=== PATIENT | female | born 1935 | race Caucasian/White ===

== ENCOUNTER 2023-05-13 10:45 | Inpatient (IN) | payer MEDICARE, BC ==
[2023-05-13] VITALS (478 sets, daily range): BP systolic 147–168; BP diastolic 69–72; PULSE 82–98; TEMP 98.2–98.6; O2SAT 78–100
[~2023-05-13] VITALS: Wt 71.2 kg
--- NOTE | 2023-05-13 11:42 | NUR ---
REPORT RECEIVED FROM [facility] AT 1050. PT ARRIVED TO ICU VIA EMS [facility] AT 1142 AND WHEELED TO ROOM 7 ON A CART. SHE WAS TRANSFERRED TO BED BY STAFF X3. VS WNL AND PATIENT DENIES PAIN. SHE IS A&O X 3 AND REPORTS HER DAUGHTER CAME TO [facility] WITH HER. ASSESSMENT COMPLETED WITH NO ISSUES. DAUGHTER BROUGHT TO ROOM, BED IN LOW POSITION, CALL LIGHT WITHIN REACH, AND NO ADDITIONAL NEEDS ANTICIPATED AT THIS TIME.
[2023-05-13 13:39] LABS: PARTIAL THROMBOPLASTIN TIME 106.3 SECONDS (26.0-37.0)
[2023-05-13] MEDS ORDERED: EFFEXOR XR75 MG/CAP PO (14:40)
[2023-05-13] MEDS ORDERED: ASPIRIN 81M81 MG/TA2 PO (14:42)
[2023-05-13] MEDS ORDERED: PLAVIX 75MG TAB75 MG PO (14:43)
[2023-05-13] MEDS ORDERED: VASOTEC20 MG PO (14:44)
[2023-05-13] MEDS ORDERED: FERROUS SU325 MG/TAB PO (14:45)
[2023-05-13] MEDS ORDERED: OMEGA-31 SGL PO (14:46)
[2023-05-13] MEDS ORDERED: IMDUR 30MG30 MG/TAB PO (14:49)
[2023-05-13] MEDS ORDERED: LOPRESSOR100 MG PO (14:52)
[2023-05-13] MEDS ORDERED: CENTRUM SILVER1 CTB PO (14:53)
[2023-05-13] MEDS ORDERED: ZOCOR 40MG40 MG PO (14:54)
[2023-05-13] MEDS ORDERED: XANAX 0.5MG0.5 MG PO (14:55)
[2023-05-13] MEDS ORDERED: NITROSTAT0.4 MG/TAB SL (14:57)
[2023-05-13] MEDS ORDERED: ALDACTONE 25MG25 M1 PO (14:59)
[2023-05-13] MEDS ORDERED: GLUCOPHAGE500 MG/TAB PO (14:59)
[2023-05-13] MEDS ORDERED: PROTONIX 40MG T40 MG PO (15:00)
[2023-05-13] MEDS ORDERED: MASON NATURAL2000 IU PO (15:04)
[2023-05-13] MEDS ORDERED: NORVASC2.5 MG PO (15:05)
[2023-05-14] VITALS (93 sets, daily range): BP systolic 118–169; BP diastolic 58–96; PULSE 73–120; TEMP 97.3–98.2; O2SAT 84–99
[2023-05-14 04:58] LABS: ALBUMIN 3.5 gm/dL (3.4-4.8); CALCIUM 9.8 mg/dL (8.4-10.2); CHOLESTEROL RISK RATIO 2.5; CREATININE, serum 0.85 mg/dL (0.57-1.11); MAGNESIUM 1.7 mg/dL (1.6-2.6); PHOSPHOROUS 3.4 mg/dL (2.3-4.7); POTASSIUM 3.6 mmol/L (3.5-4.5)
[2023-05-14 05:10] LABS: TROPONIN-I 0.06 ng/mL (0.00-0.033)
[2023-05-14 05:11] LABS: HEMOGLOBIN 10.6 g/dl (12.5-16.0); MEAN CELL VOLUME 89 fl (80.0-100.0); MEAN CORPUSCULAR HEMOGLOBIN 30 pg (27-31); MEAN CORPUSCULAR HGB CONC 33 g/dl (33.0-37.0); MEAN PLATELET VOLUME 11.7 fl (7.4-10.4); PLATELET COUNT 259 K/mm3 (130-400); RED BLOOD COUNT 3.59 M/mm3 (4.10-5.30); REDCELL DISTRIBUTION WIDTH-CV 13.9 % (11.5-14.5)
[2023-05-14 05:15] LABS: HEMATOCRIT 31.8 % (37.0-47.0)
--- NOTE | 2023-05-14 06:06 | NUR ---
spoke to pt this am regarding the marty scan. pt refused and stated she wants to speak to the doctor again about the scan. nurse informed of pt decision.
[2023-05-14] MEDS ORDERED: IMDUR 60MG60 MG/TAB PO (08:34)
--- NOTE | 2023-05-14 09:35 | NUR ---
PATIENT HAVING [place] TODAY, HAD QUESTIONS/ ANSWERED, NITRO WAS STOPPED AT 0828. PATIENT LEFT FOR THIS SCAN AT 0910.
--- NOTE | 2023-05-14 12:47 | NUR ---
REGIONAL ENGINEER reviewed pt's clinical record and noted she was admitted yesterday for chest pain with possible NSTEMI. REGIONAL ENGINEER met with pt and her daughter, Sheron Will at the bedside this morning to complete an intake. Pt, who is [place], is and lives alone in her own home in [place]. She is independent and ambs without assistive devices. However, she reports she fell 3 months ago @ home, but did not sustain any injury. She states she lost her balance. Pt has two adult dts, Sheron is the HCPOA. She can be reached @ ph# [phone] ( document @ home, according to pt). Her other dtr, Leigh Schilling lives in , and she can be reached at ph# [phone]. Pt reports her primary care provider is Dr. Ivette Billingsley, ph# [phone] and she fills her prescriptions thru [facility] in [place]. Pt does not anticipate a need for outpt assistance at home when discharge. Pt's dtr, Sheron indicated she will transport pt home @ discharge. No other concerns noted.
--- NOTE | 2023-05-14 21:14 | NUR ---
TRANSFERRING TO VIA [facility]. [facility] ETA [phone]
--- NOTE | 2023-05-14 23:06 | NUR ---
2153: EMS HERE AND PT IS ON STRETCHER, VSS ( [id number]%-23 RESPIRATIONS AND B/P 120-130S /70S -80S. NTG AND HEPARIN INFUSING. NO CP, FAMILY WAS AT THE BEDSIDE AND INSTRUCTED THEM WHERE AND WHEN SHE WAS GOING. REPORT GIVEN TO RN RECIEVING PT IN [place], AND REPORT GIVEN TO EMS.
== END 2023-05-14 21:53 | disposition short-term general hospital (02) | DRG 282 ==
LOC: IMCU 10:45 → ICU 11:58 → IMCU 05-14 17:51
PROVIDERS: Internal Medicine; ADMIT Internal Medicine
DX: I21.4 Non-ST elevation (NSTEMI) myocardial infarction (principal); I25.10 Atherosclerotic heart disease of native coronary artery without angina pectoris; Z95.1 Presence of aortocoronary bypass graft; E11.9 Type 2 diabetes mellitus without complications; I10 Essential (primary) hypertension; E78.5 Hyperlipidemia, unspecified; F41.9 Anxiety disorder, unspecified
CPT/HCPCS: A9500-JZ; J1644; J2305

== ENCOUNTER 2023-12-01 07:13 | Day surgery (SDC) | payer MEDICARE, BC ==
[~2023-12-01] VITALS: Ht 139.7 cm; Wt 70.1 kg
[2023-12-01] VITALS (14 sets, daily range): BP systolic 104–174; BP diastolic 42–66; PULSE 56–67; TEMP 97.7
[~2023-12-01 07:13] MED LIST: ALDACTONE 25MG25 M1 PO; ASPIRIN 81M81 MG/TA2 PO; CENTRUM SILVER1 CTB PO; EFFEXOR XR75 MG/CAP PO; FERROUS SU325 MG/TAB PO; GLUCOPHAGE500 MG/TAB PO; IMDUR 30MG30 MG/TAB PO; IMDUR 60MG60 MG/TAB PO; LOPRESSOR100 MG PO; MASON NATURAL2000 IU PO; NITROSTAT0.4 MG/TAB SL; NORVASC2.5 MG PO; OMEGA-31 SGL PO; PLAVIX 75MG TAB75 MG PO; PROTONIX 40MG T40 MG PO; VASOTEC20 MG PO; XANAX 0.5MG0.5 MG PO; ZOCOR 40MG40 MG PO
[2023-12-01 07:54] LABS: HEMATOCRIT 37.1 % (37.0-47.0); HEMOGLOBIN 12.1 g/dl (12.5-16.0); MEAN CELL VOLUME 89 fl (80.0-100.0); MEAN CORPUSCULAR HEMOGLOBIN 29 pg (27-31); MEAN CORPUSCULAR HGB CONC 33 g/dl (33.0-37.0); MEAN PLATELET VOLUME 11.5 fl (7.4-10.4); PLATELET COUNT 226 K/mm3 (130-400); RED BLOOD COUNT 4.18 M/mm3 (4.10-5.30); REDCELL DISTRIBUTION WIDTH-CV 14.3 % (11.5-14.5)
[2023-12-01 08:13] LABS: CALCIUM 9.3 mg/dL (8.4-10.2); CREATININE, serum 0.81 mg/dL (0.57-1.11); POTASSIUM 4.3 mEq/L (3.5-4.5)
[2023-12-01 08:14] LABS: INR 1.1 (0.8-3.0); PARTIAL THROMBOPLASTIN TIME 30.4 SECONDS (26.0-37.0); PROTHROMBIN TIME 11.6 SECONDS (9.7-12.8)
[2023-12-01] MEDS ORDERED: 1/2 NS 1,000 ML IV SCH ×2 (09:30→11:00)
--- NOTE | 2023-12-01 09:41 | NUR ---
Please see merge documentaiton for record of interventions, vitals and medicaitons administered during left heart cath
[2023-12-01] MEDS ORDERED: Midazolam 2 MG/2 ML VIAL IV SCH (10:22)
[2023-12-01] MEDS ORDERED: fentaNYL 50 MCG/ML 2 ML VIAL IV SCH ×2 (10:23→10:38)
[2023-12-01] MEDS ORDERED: hydrALAZINE 20 MG/ML 1 ML VIAL IV SCH (10:24)
[2023-12-01] MEDS ORDERED: Iohexol 350 - 100 ML VIAL INCOR ONE (10:25)
[2023-12-01] MEDS ORDERED: VASOTEC 10M10 MG/TAB PO (10:52)
[2023-12-01] MEDS ORDERED: LIPITOR 40MG TA40 MG PO (10:53)
[2023-12-01] MEDS ORDERED: NORVASC 5MG5 MG/TAB PO (10:53)
[2023-12-01] MEDS ORDERED: NITROSTAT0.4 MG/TAB SL (10:55)
--- NOTE | 2023-12-01 17:25 | NUR ---
Pt ambulated to [facility]12 with the help of their daughters. Pt was scheduled for a heart cath. EKG done. IV started, labs drawn. Meds and HX reviewed with the pt and thier daughters. crime lab technician nurse came in and prepped the pt for the procedure. The pt was taken down to the medical laboratory assistant. Post procedure the pt came back to EU12 to recover. At time of arrival the pts right groin site was assessed. No bleeding visualized. The pt was offered something to eat and drink. Accpeted a diet pepsi and a meal was ordered. The pt was bedrest for 6 hrs post procedure. During the bedrest time the right groin was assessed. No bleeding was visualized during the 6 hr bedrest. At the end of the bedrest time the pt got up to use the restroom. Right groin assessed again, and dressing remained clean, dry, and intact. Discharge education and information given to the pt. At this time 1612 the family asked the nurse would the pts speech get any better. They stated the pts words were slurred and the pt was having trouble finding words. Dr. Bhatt was made aware of this at 1614 and came to see the pt. When arrived the family stated the slurring was better, but the pt was still having a hard time finding words. Dr. Bhatt assessed the pt and came to the conclusion the word finding was most likely due to the medication used for conscious sedation. Family thanked for stopping by and the discharge process continued. IV dc'd, and the pt exited the unit by wheelchair to daughters car.
== END 2023-12-01 16:38 | disposition home or self-care (01) ==
LOC: COL.CAR 07:13
PROVIDERS: Internal Medicine Cardiovascular Disease
DX: I25.10 Atherosclerotic heart disease of native coronary artery without angina pectoris (principal); K21.9 Gastro-esophageal reflux disease without esophagitis; I15.9 Secondary hypertension, unspecified; E78.2 Mixed hyperlipidemia; Z79.899 Other long term (current) drug therapy; Z79.82 Long term (current) use of aspirin; Z95.1 Presence of aortocoronary bypass graft; Z95.5 Presence of coronary angioplasty implant and graft; Z79.02 Long term (current) use of antithrombotics/antiplatelets; Z87.891 Personal history of nicotine dependence
CPT/HCPCS: C1894; J0360; J1644; J2250; J3010; Q9967